=== PATIENT | female | born 1990 | race Caucasian/White ===

== ENCOUNTER 2021-05-24 22:35 | Observation (INO) | payer OTHER ==
--- NOTE | 2021-05-24 22:45 | EDM.PDOC ---
ED HPI GENERAL MEDICAL PROBLEM - General Stated Complaint: [facility] TRANSF[facility] Time Seen by Provider: 05/24/21 22:35 - History of Present Illness INITIAL COMMENTS - FREE TEXT/NARRATIVE: 31yoF A1 (1 elective ab 4 miscarriages since her tubal ligation was reversed in 2016) with an LMP of Apr 23 given her an EGA of 4 and /7. Presenting from [place] with abdominal pain. Patient also has a history of an umbilical hernia that is been present for the last 5 years since the of her son. This does intermittently cause her pain and she does sometimes have to push this back in. However she is experienced a gradually worsening different lower abdominal suprapubic pain over the course of the day today. No fevers no nausea vomiting or change in bowel habits. No vaginal bleeding or discharge. 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 She does have a prior history of a tubal ligation which was subsequently reversed in 2017. Right now her symptoms are improved after getting pain medication from the EMS crew. Symptoms are constant without alleviating factors exacerbating factors radiation or other associated symptoms. Work-up performed at [place] is notable for a completely normal EKG with normal sinus rhythm and a heart rate of 79 no indication to repeat here. Labs from [place] are notable for normal troponin her CBC is normal with a minimal leukocytosis to 11.8 normal differential and CMP is completely normal her CRP is mildly elevated to 6.7 D-dimer was normal at 0.42 patient was previously positive for Covid on April 08, 2021 she is negative for Covid today her qualitative beta hCG is positive and her urinalysis is normal. Middle Abdomen Pain Score (Numeric/FACES): 1 - Related Data Allergies Allergy/AdvReac Type Severity Reaction Status Date / Time Penicillins Allergy Unknown Hives Verified 05/24/21 22:39 Home Meds: Home Meds Pantoprazole Sodium [Protonix] 40 mg PO DAILY 05/24/21 [History] Phentermine HCl 37.5 mg PO DAILY 05/24/21 [History] ED ROS GENERAL - Review of Systems Review Of Systems: See Below Free Text/Narrative/Comment: General: No fever. Skin: No rash. Eyes: No vision problems. ENT: No sore throat. Neck: No neck stiffness. Respiratory: No shortness of breath. Cardiac: No chest pain. Gastrointestinal: Per HPI Urinary: No dysuria. Musculoskeletal: No myalgias/arthralgias. Neurologic: No headache. ED EXAM, GENERAL - Physical Exam Exam: See Below Free Text/Narrative:: General Appearance: No acute distress, appears comfortable Skin: No rash HEENT: Normocephalic/atraumatic, sclera anicteric, mucous membranes moist Neck: Normal range of motion Chest and Lungs: Bilateral breath sounds, clear to auscultation Cardiovascular: Regular rate and rhythm, no murmur Abdomen: Soft, lower abdominal tenderness there is a tender umbilical hernia that is nearly completely and easily reducible Musculoskeletal: No edema or tenderness Neurologic: Awake, alert, no obvious deficits, moving all extremities Psychiatric: Appropriate, cooperative Course - Vital Signs Last Recorded V/S: Last Vital Signs Temp 97.4 F 05/24/21 22:40 Pulse 79 05/25/21 00:50 Resp 17 05/24/21 22:40 BP 119/75 05/25/21 00:50 Pulse Ox 97 05/25/21 00:50 - Orders/Labs/Meds Orders: Active Orders 24 hr Category Date Time Status Patient Status [ADT] Routine ADT 05/25/21 01:25 Active CBC W/O DIFF,HEMOGRAM [HEME] Stat Lab 05/25/21 06:00 Ordered HCG QUANTITATIVE [CHEM] Urgent Lab 05/25/21 06:00 Ordered RHOGAM, [RHIG WORKUP, ] [BBK] Stat Lab 05/25/21 01:16 Ordered Lactated Ringers [Ringers, Lactated] 1,000 ml Med 05/25/21 01:45 Active IV ASDIRECTED Morphine Med 05/25/21 01:33 Once 4 mg IVPUSH ONETIME ONE Sodium Chloride 0.9% [Saline Flush] Med 05/24/21 22:46 Active 10 ml FLUSH ASDIRECTED PRN Sodium Chloride 0.9% [Saline Flush] Med 05/24/21 22:46 Active 2.5 ml FLUSH ASDIRECTED PRN Saline Lock Insert [OM.PC] Stat Oth 05/24/21 22:46 Ordered Medication Orders Lactated Ringer's (Ringers, Lactated) 1,000 mls @ 125 mls/hr IV ASDIRECTED CLAUDIO Sodium Chloride (Sodium Chloride 0.9% 10 Ml Syringe) 10 ml FLUSH ASDIRECTED PRN PRN Reason: Keep Vein Open Sodium Chloride (Sodium Chloride 0.9% 2.5 Ml Syringe) 2.5 ml FLUSH ASDIRECTED PRN PRN Reason: Keep Vein Open Labs: Laboratory Tests 05/24/21 05/24/21 05/25/21 Range/Units 23:06 23:06 01:00 Hgb 13.3 (12.0-16.0) g/dL Hct 38.4 (36.0-46.0) % HCG, Quant 337.0 mIU/mL Blood Type O NEGATIVE Meds: Medications Generic Name Dose Route Start Last Admin Trade Name Freq PRN Reason Stop Dose Admin Lactated Ringer's 1,000 mls @ 125 mls/hr 05/25/21 01:45 Ringers, Lactated IV ASDIRECTED CLAUDIO Sodium Chloride 10 ml 05/24/21 22:46 Sodium Chloride 0.9% 10 Ml Syringe FLUSH ASDIRECTED PRN Keep Vein Open Sodium Chloride 2.5 ml 05/24/21 22:46 Sodium Chloride 0.9% 2.5 Ml Syringe FLUSH ASDIRECTED PRN Keep Vein Open Departure - Departure Time of Disposition: 01:34 Disposition: Refer to Observation Condition: Good Clinical Impression: Ruptured ectopic - Discharge Information Sepsis Event Note (ED) - Focused Exam Vital Signs: Vital Signs Temp Pulse Resp BP Pulse Ox 05/25/21 00:50 79 119/75 97 05/24/21 22:40 97.4 F 76 17 105/59 L 95 - My Orders Last 24 Hours: My Active Orders 05/24/21 22:46 Sodium Chloride 0.9% [Saline Flush] 10 ml FLUSH ASDIRECTED PRN Sodium Chloride 0.9% [Saline Flush] 2.5 ml FLUSH ASDIRECTED PRN Saline Lock Insert [OM.PC] Stat 05/25/21 01:16 RHOGAM, [RHIG WORKUP, ] [BBK] Stat 05/25/21 01:25 Patient Status [ADT] Routine 05/25/21 01:33 Morphine 4 mg IVPUSH ONETIME ONE 05/25/21 01:45 Lactated Ringers [Ringers, Lactated] 1,000 ml IV ASDIRECTED 05/25/21 06:00 CBC W/O DIFF,HEMOGRAM [HEME] Stat HCG QUANTITATIVE [CHEM] Urgent - Assessment/Plan Last 24 Hours: My Active Orders 05/24/21 22:46 Sodium Chloride 0.9% [Saline Flush] 10 ml FLUSH ASDIRECTED PRN Sodium Chloride 0.9% [Saline Flush] 2.5 ml FLUSH ASDIRECTED PRN Saline Lock Insert [OM.PC] Stat 05/25/21 01:16 RHOGAM, [RHIG WORKUP, ] [BBK] Stat 05/25/21 01:25 Patient Status [ADT] Routine 05/25/21 01:33 Morphine 4 mg IVPUSH ONETIME ONE 05/25/21 01:45 Lactated Ringers [Ringers, Lactated] 1,000 ml IV ASDIRECTED 05/25/21 06:00 CBC W/O DIFF,HEMOGRAM [HEME] Stat HCG QUANTITATIVE [CHEM] Urgent Assessment:: 31-year-old female presenting with lower abdominal pain and positive test. Ectopic needs to be excluded relevant ultrasound as well as quantitative hCG been ordered type and Rh ordered as well patient notes that she is O-. Other labs were done in [place] and do not need to be repeated here. Certainly her umbilical hernia could be the cause of her pain but it is not appear incarcerated at this time as it is reducible and we need to further evaluate and exclude ectopic before turning her attention to the hernia. 0045: Pt is Rh (-). US is concerning for ectopic with a significant amount of free fluid in the pelvis. US tech did not see an ectopic during his scan. However, formal radiology reads are pending. Given the significant free fluid will repeat H/H and discuss with OB. Quant Hcg is in the 300s. 0050: Pt discussed with OB. Agrees with repeat H/H. Since patient is HDS will await this result and formal US interpretation. 0110: Repeat H&H @ 0100 is 13.3/38.4 down from 14.2/42 at 1822 today 0125: Pt discussed again with Dr. Patel. Patient remains hemodynamically stable. Formal radiology read shows no ovarian or adnexal masses and no intra or extrauterine gestation but moderate free fluid in overall was concerning for ruptured ectopic . Given her hemodynamic stability Dr. Patel recommends admission to the floor with vitals every 4 hours along with repeat quant beta hCG and repeat CBC to be done at 6 AM. Patient will be admitted onto Dr. Patel's service and remain NPO. On my reassessment at 0135 patient remains with good vital signs heart rate in the 90s systolic blood pressure in the 1 teens. She is awake and alert she has some moderate pain and will be given morphine for this. Patient was started on LR at 125 an hour per OBs request I have also placed orders for the repeat blood work in the morning. Patient had negative Covid at [place] and this does not need to be repeated here. Nursing is working on getting the RhoGam started.
[2021-05-24] MEDS ORDERED: Sodium Chloride 0.9% 2.5 ML Syringe FLUSH PRN (22:46)
[2021-05-24] MEDS ORDERED: Sodium Chloride 0.9% 10 ML Syringe FLUSH PRN (22:46)
--- NOTE | 2021-05-25 01:10 | US ---
INDICATION: Positive test, 4 weeks 3 days gestation by LMP TECHNIQUE: Ultrasound pelvis transabdominal and transvaginal. COMPARISON: None FINDINGS: Uterus: 9.0 x 4.7 x 6.0 cm. No intrauterine or extrauterine gestation identified. Right ovary: 4.0 x 2.7 x 3.4 cm. No ovarian or adnexal masses. Left ovary: 3.0 x 2.2 x 2.2 cm. No ovarian or adnexal masses. There is blood flow in both ovaries. Cul-de-sac: Moderate free fluid in the cul de sac tract into the right adnexa and around the uterus. IMPRESSION: No intrauterine identified. Although this could be due to early stage of , the presence of moderate amount of free fluid in the pelvis is concerning for ruptured ectopic . Recommend gynecology consultation. Findings discussed with Dr. Cadena at 1:07 a.m. on May 25, 2021. Dictated by Dominga Hyman MD @ 05/25/2021 1:09:20 AM (Electronically Signed)
[2021-05-25] MEDS ORDERED: Morphine 4 MG/ML Syringe IVPUSH ONE ×2 (01:33→01:37)
[2021-05-25] MEDS ORDERED: Morphine 4 MG/ML VIAL ONE (01:39)
[2021-05-25] MEDS ORDERED: Lactated Ringers 1,000 ML IV SCH (01:45)
--- NOTE | 2021-05-25 09:57 | PCM.HP.2 ---
H&P History of Present Illness - General Date of Service: 05/25/21 Admit Problem/Dx: Admission Diagnosis/Problem Admission Diagnosis/Problem Ruptured ectopic Source of Information: Patient History Limitations: Reports: No Limitations - History of Present Illness Initial Comments - Free Text/Narative: 31 year old female presented to [place] ED last evening with pelvic pain after positive test. Has a history of two vaginal deliveries, bilateral tubal ligation followed by a tubal reversal. She also has a history of 1 ETOP and 2 spontaneous abortions, most recent SAB earlier this year. Has been attempting . Started having pelvic pain last evening at 1700. Denies lightheadedness/dizziness, headaches, nausea/vomiting, vaginal dis charge or vaginal bleeding. She was transferred to [place] ED due to no ultrasound capability in [place]. US obtained in [place] ED, no intrauterine or ectopic or adnexal masses noted consistent with bHCG level of 336. Moderate amount of free fluid noted within the pelvis. Hgb 13 and stable on repeat. Vital signs stable while in ED. Due to patient's history of tubal reversal and possible early ectopic , patient admitted this morning for observation. Pain this morning has returned after her last dose of Morphine was given earlier this morning. Hgb stable at 12.6 this morning and her bHCG decreased to 281. Ambulating and voiding independently. Denies nausea/vomiting, vaginal bleeding or discharge. Denies history of immunodeficiency, anemia, thrombocytopenia, hep atic, renal, pulmonary or peptic ulcer disease. Middle Abdomen Pain Score (Numeric/FACES): 2 - Related Data Allergies/Adverse Reactions: Allergies Allergy/AdvReac Type Severity Reaction Status Date / Time Penicillins Allergy Unknown Hives Verified 05/24/21 22:39 Clorox Bleach wipes Allergy Unknown Hives Uncoded 05/25/21 04:29 Home Medications: Home Meds Pantoprazole Sodium [Protonix] 40 mg PO DAILY 05/24/21 [History] Phentermine HCl 37.5 mg PO DAILY 05/24/21 [History] Past Medical History HEENT History: Reports: None Cardiovascular History: Reports: None Respiratory History: Reports: None Gastrointestinal History: Reports: Other (See Below) Other Gastrointestinal History: umbilical hernia Genitourinary History: Reports: None [employer] History: Reports: Other (See Below) Other OB/BYN History: tubal litigation (2016); tubal reversal (2017) Musculoskeletal History: Reports: None Neurological History: Reports: None Psychiatric History: Reports: None Endocrine/Metabolic History: Reports: None Hematologic History: Reports: None Oncologic (Cancer) History: Reports: None Dermatologic History: Reports: None - Infectious Disease History Infectious Disease History: Reports: Chicken Pox - Past Surgical History Head Surgeries/Procedures: Reports: None Social & Family History - Family History Family Medical History: No Pertinent Family History - Tobacco Use Tobacco Use Status *Q: Current Every Day Tobacco User Years of Tobacco use: 13 Packs/Tins Daily: 0.5 - Caffeine Use Caffeine Use: Reports: Coffee - Recreational Drug Use Recreational Drug Use: No H&P Review of Systems - Review of Systems: Review Of Systems: See Below General: Reports: Fatigue HEENT: Reports: No Symptoms Pulmonary: Reports: No Symptoms Cardiovascular: Reports: No Symptoms Gastrointestinal: Reports: Abdominal Pain Genitourinary: Reports: No Symptoms Musculoskeletal: Reports: Back Pain Skin: Reports: No Symptoms Psychiatric: Reports: No Symptoms Neurological: Reports: No Symptoms Hematologic/Lymphatic: Reports: No Symptoms Immunologic: Reports: No Symptoms Exam - Exam Exam: See Below - Vital Signs Vital Signs: Last Vital Signs Temp 97.3 F 05/25/21 09:03 Pulse 82 05/25/21 09:03 Resp 16 05/25/21 09:03 BP 90/55 L 05/25/21 09:03 Pulse Ox 95 05/25/21 09:03 Weight: 163 lb - Exam General: Alert Lungs: Clear to Auscultation, Normal Respiratory Effort Cardiovascular: Regular Rate, Regular Rhythm GI/Abdominal Exam: Normal Bowel Sounds, Soft, No Distention, Tender (diffuse lower abdomen) Back Exam: Normal Inspection, Full Range of Motion Extremities: Normal Inspection, Normal Range of Motion, Non-Tender, No Pedal Edema Skin: Warm, Dry, Intact Neuro Extensive - Mental Status: Normal Mood/Affect Psychiatric: Normal Mood - Patient Data Lab Results Last 24 hrs: Laboratory Results - last 24 hr 05/24/21 05/24/21 05/25/21 Range/Units 23:06 23:06 01:00 WBC (4.0-11.0) K/uL RBC (4.30-5.90) M/uL Hgb 13.3 (12.0-16.0) g/dL Hct 38.4 (36.0-46.0) % MCV (80.0-98.0) fL MCH (27.0-32.0) pg MCHC (31.0-37.0) g/dL RDW Std Deviation (28.0-62.0) fl RDW Coeff of Bessie (11.0-15.0) % Plt Count (150-400) K/uL MPV (7.40-12.00) fL Nucleated RBC % /100WBC Nucleated RBCs # K/uL HCG, Quant 337.0 mIU/mL Blood Type O NEGATIVE Antibody Screen NEGATIVE Rhogam Indicated YES 05/25/21 05/25/21 Range/Units 06:10 06:10 WBC 13.21 H (4.0-11.0) K/uL RBC 4.07 L (4.30-5.90) M/uL Hgb 12.6 (12.0-16.0) g/dL Hct 36.5 (36.0-46.0) % MCV 89.7 (80.0-98.0) fL MCH 31.0 (27.0-32.0) pg MCHC 34.5 (31.0-37.0) g/dL RDW Std Deviation 45.0 (28.0-62.0) fl RDW Coeff of Bessie 14 (11.0-15.0) % Plt Count 280 (150-400) K/uL MPV 8.90 (7.40-12.00) fL Nucleated RBC % 0.0 /100WBC Nucleated RBCs # 0 K/uL HCG, Quant 281.0 mIU/mL Blood Type Antibody Screen Rhogam Indicated Result Diagrams: 05/25/21 06:10 Sepsis Event Note - Evaluation Sepsis Screening Result: No Definite Risk - Focused Exam Vital Signs: Vital Signs Temp Pulse Resp BP Pulse Ox 05/25/21 09:03 97.3 F 82 16 90/55 L 95 05/25/21 06:38 96.6 F L 77 15 107/59 L 94 L 05/25/21 03:10 97.4 F 60 16 100/67 96 05/25/21 02:50 70 18 111/66 05/25/21 01:50 97.5 F 88 16 102/67 96 05/25/21 00:50 79 119/75 97 05/24/21 22:40 97.4 F 76 17 105/59 L 95 Problem List Initiated/Reviewed/Updated: Yes Orders Last 24hrs: Active Orders 24 hr Category Date Time Status Patient Status [ADT] Routine ADT 05/25/21 01:25 Active NPO Now [Nothing per Oral Now Diet] [DIET] Diet 05/25/21 Breakfast Active Lactated Ringers [Ringers, Lactated] 1,000 ml Med 05/25/21 01:45 Active IV ASDIRECTED Sodium Chloride 0.9% [Saline Flush] Med 05/24/21 22:46 Active 10 ml FLUSH ASDIRECTED PRN Sodium Chloride 0.9% [Saline Flush] Med 05/24/21 22:46 Active 2.5 ml FLUSH ASDIRECTED PRN Saline Lock Insert [OM.PC] Stat Oth 05/24/21 22:46 Ordered Medication Orders Lactated Ringer's (Ringers, Lactated) 1,000 mls @ 125 mls/hr IV ASDIRECTED CLAUDIO Last Admin: 05/25/21 01:43 Dose: 125 mls/hr Documented by: SCHOLAC Sodium Chloride (Sodium Chloride 0.9% 10 Ml Syringe) 10 ml FLUSH ASDIRECTED PRN PRN Reason: Keep Vein Open Sodium Chloride (Sodium Chloride 0.9% 2.5 Ml Syringe) 2.5 ml FLUSH ASDIRECTED PRN PRN Reason: Keep Vein Open Assessment/Plan Comment:: 31 year old female with pelvic pain and positive test * Admit for observation due to concern for possible early ectopic * Labs - bHCG 336 > 281, consistent with early failure - Hgb 13.3 > 12.6 - Blood type is O negative, s/p Rhogam * US: no intrauterine or ectopic identified. No adnexal masses noted. Moderate amount of free fluid. * Vitals stable, however, BP mildly decreased this morning. Will give IVF bolus. * Options for management reviewed including expectant management, methotrexate or surgery. Patient desires to avoid surgery at this time and vitals remain stable. Reviewed risks of methotrexate, patient does not have any medical conditions that would contraindicate the medication. Dr. Mims will be in [facility] clinic on 05/29/2021. Plan to repeat bHCG that morning with exam to follow. Bleeding and ectopic precautions reviewed. Will proceed with methotrexate IM x1 this morning and plan for discharge if patient remains stable.
[2021-05-25] MEDS ORDERED: Morphine 2 MG/ML SYRINGE IVPUSH PRN (10:00)
[2021-05-25] MEDS ORDERED: Lactated Ringers 500 ML IV ONE (10:04)
[2021-05-25] MEDS ORDERED: Acetaminophen/oxyCODONE 325-5 MG Tab PO PRN (11:00)
[2021-05-25] MEDS ORDERED: Methotrexate PF 50 MG/2 ML SDV IM ONE (11:30)
== END 2021-05-25 15:03 | disposition home or self-care (01) ==
LOC: MW.ED 05-25 01:42 → MW.MS 05-25 01:49
PROVIDERS: ADMIT Obstetrics & Gynecology; ATTEND Obstetrics & Gynecology
DX: R10.2 Pelvic and perineal pain (principal); Z88.0 Allergy status to penicillin; Z33.1 Pregnant state, incidental; Z79.899 Other long term (current) drug therapy; F17.210 Nicotine dependence, cigarettes, uncomplicated
CPT/HCPCS: 36415; 76801; 84702; 85014; 85018; 85027; 86850; 86900; 86901; 90384; A9270; J2270; J7120; J9260; 96372; 96374; 96376; 99285-25; G0378; J2790

== ENCOUNTER 2021-12-12 08:10 | Day surgery (SDC) | payer OTHER ==
[~2021-12-12 08:10] MED LIST: Albuterol 0.083% 2.5 MG/3 ML Neb Soln NEB PRN; HYDROmorphone 1 MG/ML Syringe IVPUSH PRN; Lactated Ringers 1,000 ML IV SCH; Metoclopramide 10 MG/2 ML SDV IVPUSH PRN; Morphine 2 MG/ML SYRINGE IVPUSH PRN; Naloxone 0.4 MG/ML SDV IVPUSH PRN; Ondansetron 4 MG/2 ML SDV IVPUSH PRN; fentaNYL 100 MCG/2 ML SDV IVPUSH PRN
[2021-12-12] MEDS ORDERED: Lidocaine 1% with EPINEPHrine 1:100,000 10 ML MDV ONE (08:51)
[2021-12-12] MEDS ORDERED: Propofol 200 MG/20 ML SDV ONE (09:12)
[2021-12-12] MEDS ORDERED: fentaNYL 100 MCG/2 ML SDV ONE (09:12)
[2021-12-12] MEDS ORDERED: Ketorolac 30 MG/ML SDV ONE (09:12)
[2021-12-12] MEDS ORDERED: Lidocaine 2% 5 ML SDV ONE (09:12)
[2021-12-12] MEDS ORDERED: Ondansetron 4 MG/2 ML SDV ONE (09:12)
[2021-12-12] MEDS ORDERED: Midazolam 1 MG/ML 2 ML SDV ONE (09:12)
[2021-12-12] MEDS ORDERED: Dexamethasone 4 MG/ML 5 ML MDV ONE (09:12)
[2021-12-12] MEDS ORDERED: Ketorolac 30 MG/ML SDV IVPUSH ONE (10:42)
== END 2021-12-12 11:28 | disposition home or self-care (01) ==
LOC: MW.SDS 08:10
PROVIDERS: ATTEND Obstetrics & Gynecology
DX: N87.1 Moderate cervical dysplasia (principal); N72 Inflammatory disease of cervix uteri; F17.210 Nicotine dependence, cigarettes, uncomplicated; K21.9 Gastro-esophageal reflux disease without esophagitis; Z79.899 Other long term (current) drug therapy; Z98.890 Other specified postprocedural states; Z88.0 Allergy status to penicillin
CPT/HCPCS: 36415; 57522; 84703; J0131; J1100; J2250; J2405; J2704; J3010; J7120; 00940; J1885